=== PATIENT | female | born 1985 | race Caucasian/White ===

== ENCOUNTER 2016-08-01 13:30 | Emergency (ER) | payer OTHER ==
[2016-08-01] MEDS ORDERED: ED CLINDAMYCIN PREMIX 50 ML IV ONE (16:59)
[2016-08-01] MEDS ORDERED: KETOROLAC 30 MG/ML VIAL ONE (17:35)
== END 2016-08-01 19:18 | disposition home or self-care (01) ==
LOC: ER 13:30
CPT/HCPCS: 36415 ×2; 73630; 80053 ×2; 83605 ×2; 84703 ×2; 85025 ×2; 85652 ×2; 96365; 96375; J1885